=== PATIENT | male | born 1955 | race African-American/Black ===

== ENCOUNTER 2020-06-28 | Emergency (ER) | payer OTHER ==
[~2020-06-28] VITALS: Ht 170.2 cm; Wt 97.5 kg
[2020-06-28 01:59] LABS: Basophils # (auto) 0 10 ^3/uL (0-0.2); Basophils % (auto) 0.3 % (0.0-2.0); Eosinophils # (auto) 0.4 10 ^3/uL (0-0.8); Eosinophils % (auto) 3.1 % (0.0-7.0); Hematocrit 40.3 % (41.0-53.0); Hemoglobin 13.4 g/dL (13.5-17.5); Lymphocytes # (auto) 0.9 10 ^3/uL (0.4-5.4); Lymphocytes % (auto) 8.1 % (10.0-50.0); Mean Corpuscular Hemoglobin 32.2 pg (28.0-32.0); Mean Corpuscular Hgb Conc. 33.3 g/dL (32.0-36.0); Mean Corpuscular Volume 96.8 fL (80.0-100.0); Monocytes # (auto) 1.3 10 ^3/uL (0-1.3); Monocytes % (auto) 11.1 % (0.0-12.0); Neutrophils # (auto) 8.9 10 ^3/uL (1.6-8.6); Neutrophils % (auto) 77.4 % (37.0-80.0); Platelet Count (auto) 283 10^3/uL (140-450); Red Blood Cells 4.17 10^6/uL (4.5-5.90); Red Cell Distribution Width 16.4 % (11.8-14.3); White Blood Cell 11.5 10^3/uL (4.4-10.8)
[2020-06-28 02:31] LABS: Albumin 3.2 g/dL (3.4-5.0); BUN/Creatinine Ratio 28.3; Calcium 8.4 mg/dL (8.5-10.1); Potassium 3.4 mmol/L (3.5-5.1)
[2020-06-28 02:34] LABS: Bilirubin, Total 0.4 mg/dL (0.2-1.0); Total Protein 6.8 g/dL (6.4-8.2)
[2020-06-28] MEDS ORDERED: ALBUMIN 5% 250 ML IV ONE (04:30)
[2020-06-28] MEDS ORDERED: FUROSEMIDE 20 MG/2 ML VIAL IV ONE (04:30)
[2020-06-28] MEDS ORDERED: methylPREDNISolone SOD SUCC 125 MG/2 ML VL IV ONE (05:15)
[2020-06-28] MEDS ORDERED: diphenhdrAMINE HCL 25 MG CAP PO ONE (05:15)
[2020-06-28 06:00] VITALS: BP 156/70
== END 2020-06-28 06:51 | disposition home or self-care (01) ==
LOC: ER 00:02
DX: L13.9 Bullous disorder, unspecified (principal); L29.9 Pruritus, unspecified; I10 Essential (primary) hypertension
CPT/HCPCS: 36415; 80053; 83605; 83880; 84484; 85025; 87040; 93005; 93970; 96365; 96375; 99285; J1940; J2930; P9045

== ENCOUNTER 2021-04-21 18:40 | Inpatient (IN) | payer OTHER ==
[~2021-04-21] VITALS: Ht 172.7 cm; Wt 84.3 kg
[2021-04-21 19:50] LABS: Basophils # (auto) 0.1 10 ^3/uL (0-0.2); Basophils % (auto) 1.3 % (0.0-2.0); Eosinophils # (auto) 0.1 10 ^3/uL (0-0.8); Eosinophils % (auto) 2.2 % (0.0-7.0); Hematocrit 12.2 % (41.0-53.0); Lymphocytes # (auto) 1.2 10 ^3/uL (0.4-5.4); Lymphocytes % (auto) 18.5 % (10.0-50.0); Mean Corpuscular Hemoglobin 23.6 pg (28.0-32.0); Mean Corpuscular Hgb Conc. 30.4 g/dL (32.0-36.0); Mean Corpuscular Volume 77.5 fL (80.0-100.0); Monocytes # (auto) 0.7 10 ^3/uL (0-1.3); Monocytes % (auto) 10.8 % (0.0-12.0); Neutrophils # (auto) 4.4 10 ^3/uL (1.6-8.6); Neutrophils % (auto) 67.2 % (37.0-80.0); Nucleated Red Blood Cells % 0.9 %; Red Blood Cells 1.57 10^6/uL (4.5-5.90); White Blood Cell 6.6 10^3/uL (4.4-10.8)
[2021-04-21 20:06] LABS: Hemoglobin 3.7 g/dL (13.5-17.5)
[2021-04-21 20:10] LABS: Albumin 3.1 g/dL (3.4-5.0); Magnesium 2.3 mg/dL (1.6-2.6)
[2021-04-21 20:11] LABS: INR 3.32 (0.9-1.15)
[2021-04-21 20:16] LABS: BUN/Creatinine Ratio 27.6; Bilirubin, Total 0.3 mg/dL (0.2-1.0); Total Protein 6.2 g/dL (6.4-8.2)
[2021-04-21 22:12] VITALS: BP 100/48
[2021-04-21] MEDS ORDERED: MORPHINE SULFATE INJECTION 2 MG/ML SYRG IV PRN (22:15)
[2021-04-21] MEDS ORDERED: ONDANSETRON HCL 4 MG/2 ML VIAL IV PRN (22:15)
[2021-04-21] MEDS ORDERED: NITROGLYCERIN 0.4 MG SL TAB SL PRN (22:15)
[2021-04-21 22:27] VITALS: BP 108/48
[2021-04-21 22:52] VITALS: BP 114/54
[2021-04-21 23:58] VITALS: BP 101/33
[2021-04-22] VITALS (12 sets, daily range): BP systolic 98–130; BP diastolic 32–66
[2021-04-22 00:21] LABS: Urine Bacteria NONE SEEN /hpf (None Seen); Urine Blood 1+ /uL (Negative); Urine Specific Gravity 1.015 (1.001-1.035); Urine WBC 1 /hpf (0 - 3)
[2021-04-22] MEDS: PANTOPRAZOLE 40mg/50ML NS AE 50 ML IV SCH ×6 (00:40→23:43)
[2021-04-22] MEDS ORDERED: IOHEXOL 350 MG/ML 100ML IJ ONE (01:09)
[2021-04-22] MEDS ORDERED: FUROSEMIDE 20 MG/2 ML VIAL IV ONE (01:15)
[2021-04-22] MEDS: FUROSEMIDE 20 MG/2 ML VIAL IV SCH ×3 (03:53→20:45)
[2021-04-22 11:55] LABS: Basophils # (auto) 0.1 10 ^3/uL (0-0.2); Eosinophils # (auto) 0.2 10 ^3/uL (0-0.8); Monocytes # (auto) 0.6 10 ^3/uL (0-1.3); Neutrophils # (auto) 3.9 10 ^3/uL (1.6-8.6); White Blood Cell 5.5 10^3/uL (4.4-10.8)
[2021-04-22 11:57] LABS: Basophils % (auto) 1.2 % (0.0-2.0); Eosinophils % (auto) 3.6 % (0.0-7.0); Lymphocytes # (auto) 0.7 10 ^3/uL (0.4-5.4); Lymphocytes % (auto) 13.1 % (10.0-50.0); Mean Corpuscular Hemoglobin 26.2 pg (28.0-32.0); Mean Corpuscular Hgb Conc. 32.6 g/dL (32.0-36.0); Mean Corpuscular Volume 80.5 fL (80.0-100.0); Monocytes % (auto) 11.4 % (0.0-12.0); Neutrophils % (auto) 70.7 % (37.0-80.0); Red Blood Cells 2.36 10^6/uL (4.5-5.90)
[2021-04-22 12:07] LABS: Red Cell Distribution Width 20.2 % (11.8-14.3)
[2021-04-22 12:08] LABS: Hemoglobin 6.2 g/dL (13.5-17.5)
[2021-04-22 12:15] LABS: Albumin 3.1 g/dL (3.4-5.0); Calcium 8.1 mg/dL (8.5-10.1); Potassium 3.6 mmol/L (3.5-5.1)
[2021-04-22 12:20] LABS: BUN/Creatinine Ratio 27.1; Bilirubin, Total 1.1 mg/dL (0.2-1.0); Total Protein 6.5 g/dL (6.4-8.2)
[2021-04-23 01:26] LABS: Lymphocytes # (auto) 1.3 10 ^3/uL (0.4-5.4); Mean Corpuscular Volume 81.5 fL (80.0-100.0); Monocytes # (auto) 0.7 10 ^3/uL (0-1.3); White Blood Cell 6.2 10^3/uL (4.4-10.8)
[2021-04-23 01:28] LABS: Basophils # (auto) 0 10 ^3/uL (0-0.2); Basophils % (auto) 0.5 % (0.0-2.0); Eosinophils # (auto) 0.2 10 ^3/uL (0-0.8); Eosinophils % (auto) 2.9 % (0.0-7.0); Lymphocytes % (auto) 21.6 % (10.0-50.0); Mean Corpuscular Hemoglobin 27.1 pg (28.0-32.0); Mean Corpuscular Hgb Conc. 33.2 g/dL (32.0-36.0); Monocytes % (auto) 11.8 % (0.0-12.0); Neutrophils # (auto) 3.9 10 ^3/uL (1.6-8.6); Neutrophils % (auto) 63.2 % (37.0-80.0); Nucleated Red Blood Cells % 0.5 %; Red Blood Cells 2.57 10^6/uL (4.5-5.90); Red Cell Distribution Width 19.6 % (11.8-14.3)
[2021-04-23] MEDS: PANTOPRAZOLE 40mg/50ML NS AE 50 ML IV SCH ×5 (04:15→23:39)
[2021-04-23] MEDS: FUROSEMIDE 20 MG/2 ML VIAL IV SCH ×2 (06:00→18:28)
[2021-04-23 06:55] LABS: Basophils # (auto) 0.1 10 ^3/uL (0-0.2); Eosinophils # (auto) 0.2 10 ^3/uL (0-0.8); Lymphocytes # (auto) 1.1 10 ^3/uL (0.4-5.4); Mean Corpuscular Hemoglobin 26.8 pg (28.0-32.0); Monocytes # (auto) 0.8 10 ^3/uL (0-1.3); Neutrophils # (auto) 4.9 10 ^3/uL (1.6-8.6); Neutrophils % (auto) 68.7 % (37.0-80.0)
[2021-04-23 06:57] LABS: Eosinophils % (auto) 3.2 % (0.0-7.0); Hematocrit 21.1 % (41.0-53.0); Lymphocytes % (auto) 15.4 % (10.0-50.0); Mean Corpuscular Volume 81.1 fL (80.0-100.0); Monocytes % (auto) 11.7 % (0.0-12.0); Nucleated Red Blood Cells % 0.2 %; Red Cell Distribution Width 19.9 % (11.8-14.3); White Blood Cell 7.2 10^3/uL (4.4-10.8)
[2021-04-23] MEDS ORDERED: PHYTONADIONE (VIT K)10 MG/ML 1ML VIAL SUBCUT ONE (12:00)
[2021-04-23] MEDS ORDERED: POTA10TA51 PO (14:43)
[2021-04-23] MEDS ORDERED: PANT40T PO (14:43)
[2021-04-23] MEDS ORDERED: RIVA10TA PO (14:43)
[2021-04-23] MEDS ORDERED: LISI2.5T47 PO (14:43)
[2021-04-23] MEDS ORDERED: CLOP75TA70 PO (14:43)
[2021-04-23] MEDS ORDERED: HYDR-4607 PO (14:43)
[2021-04-23] MEDS ORDERED: POM (15:57)
[2021-04-23] MEDS ORDERED: POTA1TAB64 PO (15:59)
[2021-04-23] MEDS ORDERED: HYDR-4902 PO (16:00)
[2021-04-23 17:27] VITALS: BP 120/57
[2021-04-23 22:00] VITALS: BP 110/48
[2021-04-24] MEDS: PANTOPRAZOLE 40mg/50ML NS AE 50 ML IV SCH ×4 (04:51→21:05)
[2021-04-24 05:00] VITALS: BP 120/61
[2021-04-24] MEDS: FUROSEMIDE 20 MG/2 ML VIAL IV SCH ×2 (05:55→18:00)
[2021-04-24 06:28] LABS: Basophils # (auto) 0.1 10 ^3/uL (0-0.2); Eosinophils # (auto) 0.3 10 ^3/uL (0-0.8); Hemoglobin 7.7 g/dL (13.5-17.5); Nucleated Red Blood Cells % 0.2 %; White Blood Cell 8.4 10^3/uL (4.4-10.8)
[2021-04-24 06:31] LABS: Basophils % (auto) 0.8 % (0.0-2.0); Eosinophils % (auto) 3.9 % (0.0-7.0); Hematocrit 23.5 % (41.0-53.0); Lymphocytes # (auto) 0.9 10 ^3/uL (0.4-5.4); Lymphocytes % (auto) 10.6 % (10.0-50.0); Mean Corpuscular Hemoglobin 26.6 pg (28.0-32.0); Mean Corpuscular Hgb Conc. 32.7 g/dL (32.0-36.0); Mean Corpuscular Volume 81.4 fL (80.0-100.0); Monocytes % (auto) 11.6 % (0.0-12.0); Neutrophils # (auto) 6.1 10 ^3/uL (1.6-8.6); Neutrophils % (auto) 73.1 % (37.0-80.0); Red Blood Cells 2.88 10^6/uL (4.5-5.90)
[2021-04-24 06:40] LABS: Red Cell Distribution Width 20.5 % (11.8-14.3)
[2021-04-24 06:44] LABS: INR 1.13 (0.9-1.15); Partial Thromboplastin Time 23.7 sec (23.0-31.2)
[2021-04-24 07:10] LABS: Cholesterol 88 mg/dL (< 200); HDL Cholesterol 30 mg/dL (40-59); LDL Cholesterol 51 mg/dL (< 100); Triglycerides 53 mg/dL (< 150)
[2021-04-24] MEDS ORDERED: PHYTONADIONE (VIT K)10 MG/ML 1ML VIAL SUBCUT ONE (08:00)
[2021-04-24 09:03] VITALS: BP 112/51
[2021-04-24 12:37] VITALS: BP 116/56
[2021-04-24] MEDS ORDERED: LIDOCAINE VISCOUS 2% 15ML UD ONE (16:00)
[2021-04-24] MEDS: diphenhdrAMINE HCL 50 MG/1 ML VL ONE ×2 (16:08→16:11)
[2021-04-24] MEDS: fentaNYL CITRATE 100 MCG/2 ML VL ONE ×2 (16:08→16:11)
[2021-04-24] MEDS: MIDAZOLAM HCL 5 MG/ML-1ML VIAL ONE ×2 (16:08→16:11)
[2021-04-24] MEDS: SUCRALFATE 1 GM/10 ML ORAL SUSP PO SCH ×2 (17:10→22:00)
[2021-04-24 17:19] VITALS: BP 124/53
[2021-04-24 22:00] VITALS: BP 101/51
[2021-04-24] MEDS: PANTOPRAZOLE 40 MG TAB PO SCH (22:00)
[2021-04-25] MEDS: PANTOPRAZOLE 40mg/50ML NS AE 50 ML IV SCH ×4 (02:30→16:45)
[2021-04-25 03:38] LABS: Basophils # (auto) 0.1 10 ^3/uL (0-0.2); Basophils % (auto) 0.9 % (0.0-2.0); White Blood Cell 10.4 10^3/uL (4.4-10.8)
[2021-04-25 03:39] LABS: Eosinophils # (auto) 0.2 10 ^3/uL (0-0.8); Eosinophils % (auto) 1.5 % (0.0-7.0); Hematocrit 24.7 % (41.0-53.0); Hemoglobin 7.9 g/dL (13.5-17.5); Lymphocytes # (auto) 0.8 10 ^3/uL (0.4-5.4); Lymphocytes % (auto) 8.1 % (10.0-50.0); Mean Corpuscular Hemoglobin 26.1 pg (28.0-32.0); Mean Corpuscular Hgb Conc. 32.1 g/dL (32.0-36.0); Mean Corpuscular Volume 81.4 fL (80.0-100.0); Monocytes # (auto) 1.3 10 ^3/uL (0-1.3); Monocytes % (auto) 12.9 % (0.0-12.0); Neutrophils % (auto) 76.6 % (37.0-80.0); Nucleated Red Blood Cells % 0.2 %; Red Blood Cells 3.04 10^6/uL (4.5-5.90)
[2021-04-25 03:44] LABS: Red Cell Distribution Width 21.2 % (11.8-14.3)
[2021-04-25 05:00] VITALS: BP 111/59
[2021-04-25] MEDS: FUROSEMIDE 20 MG/2 ML VIAL IV SCH ×2 (06:11→18:00)
[2021-04-25] MEDS: SUCRALFATE 1 GM/10 ML ORAL SUSP PO SCH ×3 (07:00→17:00)
[2021-04-25 09:00] VITALS: BP 116/49
[2021-04-25] MEDS: PANTOPRAZOLE 40 MG TAB PO SCH (09:36)
[2021-04-25 10:01] VITALS: BP 113/61
[2021-04-25 12:49] VITALS: BP 115/56
[2021-04-25 17:00] VITALS: BP 125/57
== END 2021-04-25 19:20 | disposition home or self-care (01) | DRG 377 ==
LOC: ER 18:42 → TELE 22:05 → TELE-CENTR 04-23 16:33
PROVIDERS: ADMIT Nurse Practitioner; ATTEND Family Medicine
PROC: 30230N1 Transfusion of Nonautologous Red Blood Cells into Peripheral Vein, Open Approach (ICD-10-PCS; principal; 2021-04-21)
PROC: 30233K1 Transfusion of Nonautologous Frozen Plasma into Peripheral Vein, Percutaneous Approach (ICD-10-PCS; 2021-04-22)
PROC: 0DB98ZX Excision of Duodenum, Via Natural or Artificial Opening Endoscopic, Diagnostic (ICD-10-PCS; 2021-04-24)
PROC: 0DB68ZX Excision of Stomach, Via Natural or Artificial Opening Endoscopic, Diagnostic (ICD-10-PCS; 2021-04-24)
DX: K25.4 Chronic or unspecified gastric ulcer with hemorrhage (principal); E43 Unspecified severe protein-calorie malnutrition; I21.A1 Myocardial infarction type 2; I50.33 Acute on chronic diastolic (congestive) heart failure; D62 Acute posthemorrhagic anemia; Z20.822 Contact with and (suspected) exposure to COVID-19; K29.71 Gastritis, unspecified, with bleeding; E66.9 Obesity, unspecified; G89.29 Other chronic pain; I11.0 Hypertensive heart disease with heart failure; K44.9 Diaphragmatic hernia without obstruction or gangrene; T45.515A Adverse effect of anticoagulants, initial encounter; Z79.01 Long term (current) use of anticoagulants; Z86.718 Personal history of other venous thrombosis and embolism; Y92.89 Other specified places as the place of occurrence of the external cause; Z79.899 Other long term (current) drug therapy; Z68.28 Body mass index [BMI] 28.0-28.9, adult
CPT/HCPCS: 36415; 43239; 71045; 71260; 74177; 80053; 80061; 81001; 83735; 83880; 84484; 85025; 85610; 85730; 86850; 86900; 86901; 86920; 87426; 93005; 93306; 93970; G0378; J2250; J3430